=== PATIENT | male | born 1960 | race Caucasian/White ===

== ENCOUNTER → 2022-03-10 09:45 | Outpatient (BNVA) | payer OTHER, MEDICARE, SELFPAY | PROVIDERS: Visit Provider Nurse Practitioner Family | DX: G47.33 Obstructive sleep apnea (adult) (pediatric) (principal) ==

== ENCOUNTER 2023-08-25 09:53 | Outpatient (AMB) | payer OTHER, MEDICARE, SELFPAY ==
--- NOTE | 2023-08-25 09:59 | HO.NEPHOV ---
HPI HPI Comments History of Present Illness Details I had the delight of seeing Mr. Ceballos in consultation for his recent acute kidney injury. He has history of longstanding hypertension and proteinuria. He had a high BMI but never had diabetes. He has never undergone renal biopsy. Recently he was admitted with cellulitis of his left lower extremity. He underwent initial treatment with intravenous vancomycin and Rocephin which was subsequently changed to vancomycin and cefazolin. He underwent CT scan of the left lower extremity which did not show any gas but just cellulitis. He was not told that he has had high vancomycin levels. He had been on multiple antihypertensive medications throughout his hospital stay including angiotensin receptor trino. He was discharged home on linezolid which he has finished. His follow-up serum creatinine was found to be 2.48. He does not have any epistaxis, diffuse skin rashes, photosensitivity, headache, dizziness, chest pain, shortness of breath, nausea, vomiting or diarrhea. He denies taking nonsteroidal anti-inflammatory medications. He has been on fenofibrate. He is concerned about his rising serum creatinine. He has no urinary symptoms. He was recommended by his in the office today. [facility] Medical History (Updated 08/29/23 @ 12:10 by Vignesh Henao MD) Memory loss High cholesterol Hypertension Arthritis Occipital stroke Surgical History History of right hip replacement H/O foot surgery Family History Mother Diabetes HTN (hypertension) Heart disease Father Alzheimer disease Family/Other HTN (hypertension) Social History Alcohol intake: never Patient Tobacco Use Status: Never used Tobacco Vital Signs 08/25/23 10:00 Height 5 ft 8 in Weight 268 lb 2 oz BMI 40.8 BP 142/84 H Blood Pressure Location Lt brachial Position Sitting Pulse 76 Pulse Source Pulse Oximeter Physical Exam Vital Signs: Last Vital Signs Pulse 76 08/25/23 10:00 BP 142/84 H 08/25/23 10:00 BMI result Body Mass Index 40.8 Const General: comfortable and no acute distress Orientation/consciousness: patient oriented x3 HEENT Head: Yes normocephalic Mouth: Normal oral and palatal mucosa present Eyes EOM: EOMs intact bilaterally Neck Neck: Yes supple and Yes no JVD Resp Auscultation: clear to auscultation bilaterally Cardio Jugular venous distension: no JVD Rate: regular rate GI Palpation (GI): Soft to palpation Auscultation: normal bowel sounds General: Yes no CVA tenderness Back/Spine/Pelvis Back: no CVA tenderness Neuro General: patient oriented x3 and moves all extremities Extrem Other: Some erythema in the left LE with skin exfoliation over the region of his cellulitis General: Yes no pedal edema Assessment & Plan Assessment & Plan (1) CKD (chronic kidney disease) stage 3, GFR 30-59 ml/min: Code(s): N18.30 - Chronic kidney disease, stage 3 unspecified Qualifiers: Chronic kidney disease stage 3 subtype: stage 3a (GFR 45-59) Qualified Code(s): N18.31 - Chronic kidney disease, stage 3a (2) MAYE (acute kidney injury): Code(s): N17.9 - Acute kidney failure, unspecified (3) Hypertension: Code(s): I10 - Essential (primary) hypertension Qualifiers: Hypertension type: primary hypertension Qualified Code(s): I10 - Essential (primary) hypertension Plan José Miguel has stage III CKD at baseline with the proteinuria. He had been hypertensive and had been on multiple antihypertensive medications. Renal artery stenosis has not been ruled out as per the patient. He never had a renal biopsy. He recently was admitted in the hospital with cellulitis and needed intravenous antibiotics including Rocephin, cefazolin and vancomycin. Later he was discharged home on linezolid. Serum creatinine has gone up. Differential diagnosis for his MAYE includes tubular injury, nicole infectious glomerulonephritis, AIN or septic ATN. He denied any hemodynamic issues while being in the hospital. He continuously took the angiotensin receptor trino and thiazide diuretic which might have caused tubular issue while he had been having cellulitis. I discontinued his angiotensin receptor trino and hydrochlorothiazide. His urine output is good. I have ordered complement, urine studies and repeat blood work. We may have to hold his fenofibrate if his serum creatinine is not settling down. I asked him to increase the dose of nifedipine his blood pressure goes up given I discontinued his ARB and HCTZ. Once this MAYE has resolved I plan to order Doppler of his renal arteries and quantify his proteinuria. Differential diagnosis of his proteinuria includes secondary FSGS or longstanding hypertension. He is going to be following up with me in a few weeks. He was asked to remain well hydrated and avoid nonsteroidal anti-inflammatory medications. All his and his 's questions were answered. Follow-up appointment given. Time spent during encounter, retrieval of data and documentation 73 minutes. Orders: Orders UA and rflx microscopic 08/25/23 I10 - Essential (primary) hypertension, N17.9 - Acute kidney failure, unspecified, N18.30 - Chronic kidney disease, stage 3 unspecified Urine Eosinophil 08/25/23 I10 - Essential (primary) hypertension, N17.9 - Acute kidney failure, unspecified, N18.30 - Chronic kidney disease, stage 3 unspecified Protein Creatinine Ratio, Ur 08/25/23 I10 - Essential (primary) hypertension, N17.9 - Acute kidney failure, unspecified, N18.30 - Chronic kidney disease, stage 3 unspecified Complement C3 08/25/23 I10 - Essential (primary) hypertension, N17.9 - Acute kidney failure, unspecified, N18.30 - Chronic kidney disease, stage 3 unspecified Complement C4 08/25/23 I10 - Essential (primary) hypertension, N17.9 - Acute kidney failure, unspecified, N18.30 - Chronic kidney disease, stage 3 unspecified Electrolytes 08/25/23 I10 - Essential (primary) hypertension, N17.9 - Acute kidney failure, unspecified, N18.30 - Chronic kidney disease, stage 3 unspecified Blood Urea Nitrogen 08/25/23 I10 - Essential (primary) hypertension, N17.9 - Acute kidney failure, unspecified, N18.30 - Chronic kidney disease, stage 3 unspecified Creatinine 08/25/23 I10 - Essential (primary) hypertension, N17.9 - Acute kidney failure, unspecified, N18.30 - Chronic kidney disease, stage 3 unspecified Calcium 08/25/23 I10 - Essential (primary) hypertension, N17.9 - Acute kidney failure, unspecified, N18.30 - Chronic kidney disease, stage 3 unspecified Immunofixation Pnl, Serum 08/25/23 I10 - Essential (primary) hypertension, N17.9 - Acute kidney failure, unspecified, N18.30 - Chronic kidney disease, stage 3 unspecified Coding Level of Care Code New Pt Level 4 (84688) Diagnoses Stage 3a chronic kidney disease N18.31 Chronic kidney disease stage 3 subtype: stage 3a (GFR 45-59) MAYE (acute kidney injury) N17.9 Primary hypertension I10 Hypertension type: primary hypertension
[2023-08-25 10:00] VITALS: BP 142/84; PULSE 76; BMI 40.8
== END 2023-08-25 10:59 | disposition home or self-care (01) ==
PROVIDERS: PCP Internal Medicine; Referring Provider Internal Medicine; Visit Provider Internal Medicine Nephrology
DX: N17.9 Acute kidney failure, unspecified (principal); I12.9 Hypertensive chronic kidney disease with stage 1 through stage 4 chronic kidney disease, or unspecified chronic kidney disease; N18.31 Chronic kidney disease, stage 3a; R80.8 Other proteinuria
CPT/HCPCS: 99205

== ENCOUNTER → 2023-08-25 09:53 | Outpatient (BNVA) | payer OTHER, MEDICARE, SELFPAY | PROVIDERS: PCP Internal Medicine; Referring Provider Internal Medicine; Visit Provider Internal Medicine Nephrology ==

== ENCOUNTER 2023-09-05 09:45 | Outpatient (AMB) | payer OTHER, MEDICARE, SELFPAY ==
[2023-09-05 10:31] VITALS: BP 124/82; PULSE 65; BMI 41.2
--- NOTE | 2023-09-05 10:31 | HO.NEPHOV_ITS ---
HPI HPI Comments History of Present Illness Details I had the delight of seeing Mr. Ceballos in follow for his recent acute kidney injury on a backdrop of CKD , hypertension and proteinuria . He had a high BMI but never had diabetes. He has SHARATH on CPAP. He has never undergone renal biopsy. Recently he was admitted with cellulitis of his left lower extremity. He underwent initial treatment with intravenous vancomycin and Rocephin which was subsequently changed to vancomycin and cefazolin. He underwent CT scan of the left lower extremity which did not show any gas but just cellulitis. He was not told that he has had high vancomycin levels. He had been on multiple antihypertensive medications throughout his hospital stay including angiotensin receptor trino. He was discharged home on linezolid which he has finished. His follow-up serum creatinine was found to be 2.48. His diuretics and ARB has been discontinued by me at the last office visit. His serum creatinine has improved to 1.4. He has high IgG levels and has seen Dr Moore. He has some edema bilaterally. He denies any other symptoms. [facility] Medical History (Updated 09/06/23 @ 06:25 by Vignesh Henao MD) Memory loss High cholesterol Hypertension Arthritis Occipital stroke Surgical History History of right hip replacement H/O foot surgery Family History Mother Diabetes HTN (hypertension) Heart disease Father Alzheimer disease Family/Other HTN (hypertension) Alcohol intake: never Patient Tobacco Use Status: Never used Tobacco Vital Signs 09/05/23 10:31 Height 5 ft 8 in Weight 271 lb BMI 41.2 BP 124/82 Blood Pressure Location Lt brachial Position Sitting Pulse 65 Pulse Source Pulse Oximeter Physical Exam Vital Signs: Last Vital Signs Pulse 65 09/05/23 10:31 BP 124/82 09/05/23 10:31 BMI result Body Mass Index 41.2 Const General: comfortable and no acute distress Orientation/consciousness: patient oriented x3 HEENT Head: Yes normocephalic Mouth: Normal oral and palatal mucosa present Eyes EOM: EOMs intact bilaterally Neck Neck: Yes supple Resp Auscultation: clear to auscultation bilaterally Cardio Jugular venous distension: no JVD Rate: regular rate GI Palpation (GI): Soft to palpation Auscultation: normal bowel sounds General: Yes no CVA tenderness Back/Spine/Pelvis Back: no CVA tenderness Skin General skin exam: no rashes or lesions noted Neuro General: patient oriented x3 and moves all extremities Extrem General: Yes pedal edema Assessment & Plan Assessment & Plan (1) CKD (chronic kidney disease) stage 3, GFR 30-59 ml/min: Code(s): N18.30 - Chronic kidney disease, stage 3 unspecified Qualifiers: Chronic kidney disease stage 3 subtype: stage 3a (GFR 45-59) Qualified Code(s): N18.31 - Chronic kidney disease, stage 3a (2) Hypertension: Code(s): I10 - Essential (primary) hypertension Qualifiers: Hypertension type: primary hypertension Qualified Code(s): I10 - Essential (primary) hypertension (3) 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 He had been hypertensive and had been on multiple antihypertensive medications. Renal artery stenosis has not been ruled out as per the patient. He never had a renal biopsy. He recently was admitted in the hospital with cellulitis and needed intravenous antibiotics including Rocephin, cefazolin and vancomycin. Later he was discharged home on linezolid. Serum creatinine had gone up which has settled to 1.4 when his diuretic and ARB had been put on hold. Differential diagnosis for his MAYE at that time included tubular injury, nicole infectious glomerulonephritis, AIN or septic ATN. He denied any hemodynamic issues while being in the hospital. He continuously took the angiotensin receptor trino and thiazide diuretic which likely have caused tubular issue (while he had been having cellulitis), which has been resolved now. His angiotensin receptor trino and hydrochlorothiazide has been on hold since. His urine output is good. He has high IgG levels. He likely will need bone marrow biopsy and ECHO. I plan to order Doppler of his renal arteries and quantify his proteinuria after next visit. Differential diagnosis of his proteinuria includes secondary FSGS or longstanding hypertension vs light chain disease. He is going to be following up with me in a few weeks. He was asked to remain well hydrated and avoid nonsteroidal anti-inflammatory medications. I plan to initiate him back on diuretics and ARB after next visit. He needs lose weight. All his and his 's questions were answered. Follow-up appointment given. Time spent during encounter, retrieval of data and documentation 33 minutes Orders: Orders Protein Creatinine Ratio, Ur 09/05/23 I10 - Essential (primary) hypertension, N18.30 - Chronic kidney disease, stage 3 unspecified Electrolytes 09/05/23 I10 - Essential (primary) hypertension, N18.30 - Chronic kidney disease, stage 3 unspecified Blood Urea Nitrogen 09/05/23 I10 - Essential (primary) hypertension, N18.30 - Chronic kidney disease, stage 3 unspecified Creatinine 09/05/23 I10 - Essential (primary) hypertension, N18.30 - Chronic kidney disease, stage 3 unspecified Calcium 09/05/23 I10 - Essential (primary) hypertension, N18.30 - Chronic kidney disease, stage 3 unspecified Immunofixation, Random Urine 09/05/23 I10 - Essential (primary) hypertension, N18.30 - Chronic kidney disease, stage 3 unspecified Complete Blood Count Auto Diff 09/05/23 I10 - Essential (primary) hypertension, N18.30 - Chronic kidney disease, stage 3 unspecified Coding Level of Care Code Est Pt Level 4 (24756) Diagnoses Stage 3a chronic kidney disease N18.31 Chronic kidney disease stage 3 subtype: stage 3a (GFR 45-59) Primary hypertension I10 Hypertension type: primary hypertension Paraproteinemia D89.2 Other proteinuria R80.8 Proteinuria type: other MAYE (acute kidney injury) N17.9
== END 2023-09-05 11:11 | disposition home or self-care (01) ==
PROVIDERS: PCP Internal Medicine; Visit Provider Internal Medicine Nephrology
DX: I12.9 Hypertensive chronic kidney disease with stage 1 through stage 4 chronic kidney disease, or unspecified chronic kidney disease (principal); N18.31 Chronic kidney disease, stage 3a; N17.9 Acute kidney failure, unspecified; D89.2 Hypergammaglobulinemia, unspecified; R80.8 Other proteinuria
CPT/HCPCS: 99214

== ENCOUNTER → 2023-09-05 09:45 | Outpatient (BNVA) | payer OTHER, MEDICARE, SELFPAY | PROVIDERS: PCP Internal Medicine; Visit Provider Internal Medicine Nephrology ==

== ENCOUNTER 2023-10-26 09:50 | Outpatient (AMB) | payer OTHER, MEDICARE, SELFPAY ==
[2023-10-26 10:04] VITALS: BP 158/100; PULSE 66; BMI 42.4
--- NOTE | 2023-10-26 10:04 | HO.NEPHOV ---
HPI HPI Comments History of Present Illness Details I had the delight of seeing Mr. Ceballos in follow for his recent acute kidney injury on a backdrop of CKD , hypertension and proteinuria . He had a high BMI but never had diabetes. He has SHARATH on CPAP. He has never undergone renal biopsy. Recently he was admitted with cellulitis of his left lower extremity. He underwent initial treatment with intravenous vancomycin and Rocephin which was subsequently changed to vancomycin and cefazolin. He underwent CT scan of the left lower extremity which did not show any gas but just cellulitis. He was not told that he has had high vancomycin levels. He had been on multiple antihypertensive medications throughout his hospital stay including angiotensin receptor trino. He was discharged home on linezolid which he has finished. His follow-up serum creatinine was found to be 2.48. His diuretics and ARB has been discontinued by me & his serum creatinine has improved to 1.4. He has high IgG levels and has seen Dr Moore. He has some edema bilaterally. He denies any other symptoms [facility] Medical History (Updated 09/06/23 @ 06:25 by Vignesh Henao MD) Memory loss High cholesterol Hypertension Arthritis Occipital stroke Surgical History History of right hip replacement H/O foot surgery Family History Mother Diabetes HTN (hypertension) Heart disease Father Alzheimer disease Family/Other HTN (hypertension) Social History Alcohol intake: never Patient Tobacco Use Status: Never used Tobacco Vital Signs 10/26/23 10:04 Height 5 ft 8 in Weight 279 lb 2 oz BMI 42.4 BP 158/100 H Blood Pressure Location Lt brachial Position Sitting Pulse 66 Pulse Source Pulse Oximeter Physical Exam Vital Signs: Last Vital Signs Pulse 66 10/26/23 10:04 BP 158/100 H 10/26/23 10:04 BMI result Body Mass Index 42.4 Const General: comfortable and no acute distress Orientation/consciousness: patient oriented x3 HEENT Head: Yes normocephalic Mouth: Normal oral and palatal mucosa present Eyes EOM: EOMs intact bilaterally Neck Neck: Yes supple Resp Auscultation: clear to auscultation bilaterally Cardio Jugular venous distension: no JVD Rate: regular rate GI Palpation (GI): Soft to palpation Auscultation: normal bowel sounds General: Yes no CVA tenderness Back/Spine/Pelvis Back: no CVA tenderness Skin General skin exam: no rashes or lesions noted Neuro General: patient oriented x3 and moves all extremities Extrem General: Yes no pedal edema Assessment & Plan Assessment & Plan (1) CKD (chronic kidney disease) stage 3, GFR 30-59 ml/min: Code(s): N18.30 - Chronic kidney disease, stage 3 unspecified Qualifiers: Chronic kidney disease stage 3 subtype: stage 3a (GFR 45-59) Qualified Code(s): N18.31 - Chronic kidney disease, stage 3a (2) Hypertension: Code(s): I10 - Essential (primary) hypertension Qualifiers: Hypertension type: primary hypertension Qualified Code(s): I10 - Essential (primary) hypertension (3) 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 He had been hypertensive and had been on multiple antihypertensive medications. Renal artery stenosis has not been ruled out as per the patient. He never had a renal biopsy. He recently was admitted in the hospital with cellulitis and needed intravenous antibiotics including Rocephin, cefazolin and vancomycin. Later he was discharged home on linezolid. Serum creatinine had gone up which has settled to 1.4 when his diuretic and ARB had been put on hold. Differential diagnosis for his MAYE at that time included tubular injury, nicole infectious glomerulonephritis, AIN or septic ATN. He denied any hemodynamic issues while being in the hospital. He continuously took the angiotensin receptor trino and thiazide diuretic which likely have caused tubular issue (while he had been having cellulitis), which has been resolved now. His angiotensin receptor trino and hydrochlorothiazide has been on hold since. His urine output is good. He has high IgG levels. ( has seen Dr Moore). He likely will need bone marrow biopsy and ECHO. I ordered Doppler of his renal arteries but will quantify his proteinuria after next visit. Differential diagnosis of his proteinuria includes secondary FSGS or longstanding hypertension vs light chain disease. I reduced his Nifedipine to 60 mg daily and started him on Chlorthalidone 25 mg every other day in addition to valsartan 40 mg daily. He is going to be following up with me in a few weeks. He was asked to remain well hydrated and avoid nonsteroidal anti-inflammatory medications. He needs lose weight. All his and his 's questions were answered. Follow-up appointment given Orders: Orders US renal BI Today D89.2 - Hypergammaglobulinemia, unspecified, I10 - Essential (primary) hypertension, N18.30 - Chronic kidney disease, stage 3 unspecified, R80.9 - Proteinuria, unspecified Electrolytes Today D89.2 - Hypergammaglobulinemia, unspecified, I10 - Essential (primary) hypertension, N18.30 - Chronic kidney disease, stage 3 unspecified, R80.9 - Proteinuria, unspecified Blood Urea Nitrogen Today D89.2 - Hypergammaglobulinemia, unspecified, I10 - Essential (primary) hypertension, N18.30 - Chronic kidney disease, stage 3 unspecified, R80.9 - Proteinuria, unspecified US renal doppler Today D89.2 - Hypergammaglobulinemia, unspecified, I10 - Essential (primary) hypertension, N18.30 - Chronic kidney disease, stage 3 unspecified, R80.9 - Proteinuria, unspecified Creatinine Today D89.2 - Hypergammaglobulinemia, unspecified, I10 - Essential (primary) hypertension, N18.30 - Chronic kidney disease, stage 3 unspecified, R80.9 - Proteinuria, unspecified Medications: New chlorthalidone 25 mg PO Q OTHER DAY 30 tabs 5RF valsartan 40 mg PO DAILY 30 days 30 tabs 3RF Coding Level of Care Code Est Pt Level 4 (27574) Diagnoses Stage 3a chronic kidney disease N18.31 Chronic kidney disease stage 3 subtype: stage 3a (GFR 45-59) Primary hypertension I10 Hypertension type: primary hypertension Paraproteinemia D89.2 Other proteinuria R80.8 Proteinuria type: other Results Reviewed Nephrology Results: No Data to Display
== END 2023-10-26 10:45 | disposition home or self-care (01) ==
PROVIDERS: PCP Internal Medicine; Visit Provider Internal Medicine Nephrology
DX: N18.31 Chronic kidney disease, stage 3a (principal); I10 Essential (primary) hypertension; D89.2 Hypergammaglobulinemia, unspecified; R80.8 Other proteinuria
CPT/HCPCS: 99214

== ENCOUNTER → 2023-10-26 09:50 | Outpatient (BNVA) | payer OTHER, MEDICARE, SELFPAY | PROVIDERS: PCP Internal Medicine; Visit Provider Internal Medicine Nephrology ==

== ENCOUNTER 2023-12-14 09:38 | Outpatient (AMB) | payer OTHER, MEDICARE, SELFPAY ==
--- NOTE | 2023-12-14 09:44 | HO.NEPHOV ---
HPI HPI Comments History of Present Illness Details I had the delight of seeing Mr. Ceballos in follow for his CKD , hypertension and proteinuria . He had a high BMI but never had diabetes. He has SHARATH on CPAP. He has never undergone renal biopsy. Recently he was admitted with cellulitis of his left lower extremity. He underwent initial treatment with intravenous vancomycin and Rocephin which was subsequently changed to vancomycin and cefazolin. He underwent CT scan of the left lower extremity which did not show any gas but just cellulitis. He was not told that he has had high vancomycin levels. He had been on multiple antihypertensive medications throughout his hospital stay including angiotensin receptor trino. He was discharged home on linezolid which he has finished. His follow-up serum creatinine was found to be 2.48. His diuretics and ARB has been discontinued by me & his serum creatinine has improved to 1.4. He has high IgG levels and has seen Dr Moore. He has been on ARB and Nifedipine for BP. His last serum creatinine was 1.68. He has some edema bilaterally. He denies any other symptoms [facility] Medical History (Updated 09/06/23 @ 06:25 by Vignesh eHnao MD) Memory loss High cholesterol Hypertension Arthritis Occipital stroke Surgical History History of right hip replacement H/O foot surgery Family History Mother Diabetes HTN (hypertension) Heart disease Father Alzheimer disease Family/Other HTN (hypertension) Social History Alcohol intake: never Patient Tobacco Use Status: Never used Tobacco Vital Signs 12/14/23 09:52 Height 5 ft 8 in Weight 282 lb 4 oz BMI 42.9 BP 166/100 H Blood Pressure Location Lt brachial Position Sitting Pulse 72 Pulse Source Pulse Oximeter Pulse Oximetry (%) 96 Oxygen Delivery Method Room Air Physical Exam Const General: comfortable and no acute distress Orientation/consciousness: patient oriented x3 HEENT Head: Yes normocephalic Mouth: Normal oral and palatal mucosa present Eyes EOM: EOMs intact bilaterally Neck Neck: Yes supple Resp Auscultation: clear to auscultation bilaterally Cardio Jugular venous distension: no JVD Rate: regular rate GI Palpation (GI): Soft to palpation Auscultation: normal bowel sounds General: Yes no CVA tenderness Back/Spine/Pelvis Back: no CVA tenderness Skin General skin exam: no rashes or lesions noted Neuro General: patient oriented x3 and moves all extremities Assessment & Plan Assessment & Plan (1) CKD (chronic kidney disease) stage 3, GFR 30-59 ml/min: Code(s): N18.30 - Chronic kidney disease, stage 3 unspecified Qualifiers: Chronic kidney disease stage 3 subtype: stage 3a (GFR 45-59) Qualified Code(s): N18.31 - Chronic kidney disease, stage 3a (2) Hypertension: Code(s): I10 - Essential (primary) hypertension Qualifiers: Hypertension type: primary hypertension Qualified Code(s): I10 - Essential (primary) hypertension (3) 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 He had been hypertensive and had been on multiple antihypertensive medications. Renal artery stenosis has been ruled out as per the patient. He never had a renal biopsy. Serum creatinine has settled to 1.68. His urine output is good. He has high IgG levels. ( has seen Dr Moore). He is seeing a hvac tech in a few weeks and likely will get an ECHO done. Doppler of his renal arteries were done has no DELANEY. I will quantify his proteinuria with time. Differential diagnosis of his proteinuria includes secondary FSGS or longstanding hypertension vs light chain disease. He can continue Nifedipine 60 mg daily , Chlorthalidone 25 mg every other day in addition to valsartan 40 mg daily & metoprolol. He was asked to remain well hydrated and avoid nonsteroidal anti-inflammatory medications. He needs lose weight. All his and his 's questions were answered. Follow-up appointment given Orders: Orders Blood Urea Nitrogen Today D89.2 - Hypergammaglobulinemia, unspecified, I10 - Essential (primary) hypertension, N18.30 - Chronic kidney disease, stage 3 unspecified, R80.9 - Proteinuria, unspecified Protein Creatinine Ratio, Ur Today D89.2 - Hypergammaglobulinemia, unspecified, I10 - Essential (primary) hypertension, N18.30 - Chronic kidney disease, stage 3 unspecified, R80.9 - Proteinuria, unspecified Creatinine Today D89.2 - Hypergammaglobulinemia, unspecified, I10 - Essential (primary) hypertension, N18.30 - Chronic kidney disease, stage 3 unspecified, R80.9 - Proteinuria, unspecified Electrolytes Today D89.2 - Hypergammaglobulinemia, unspecified, I10 - Essential (primary) hypertension, N18.30 - Chronic kidney disease, stage 3 unspecified, R80.9 - Proteinuria, unspecified Coding Level of Care Code Est Pt Level 4 (76095) Diagnoses Stage 3a chronic kidney disease N18.31 Chronic kidney disease stage 3 subtype: stage 3a (GFR 45-59) Primary hypertension I10 Hypertension type: primary hypertension Paraproteinemia D89.2 Other proteinuria R80.8 Proteinuria type: other Results Reviewed Nephrology Results: No Data to Display
[2023-12-14 09:52] VITALS: BP 166/100; PULSE 72; O2SAT 96; BMI 42.9
== END 2023-12-14 10:41 | disposition home or self-care (01) ==
PROVIDERS: PCP Internal Medicine; Visit Provider Internal Medicine Nephrology
DX: N18.31 Chronic kidney disease, stage 3a (principal); I10 Essential (primary) hypertension; D89.2 Hypergammaglobulinemia, unspecified; R80.8 Other proteinuria
CPT/HCPCS: 99214

== ENCOUNTER → 2023-12-14 09:38 | Outpatient (BNVA) | payer OTHER, MEDICARE, SELFPAY | PROVIDERS: PCP Internal Medicine; Visit Provider Internal Medicine Nephrology ==

== ENCOUNTER 2024-04-11 10:46 | Outpatient (AMB) | payer OTHER, MEDICARE, SELFPAY ==
--- NOTE | 2024-04-11 10:55 | HO.NEPHOV_ITS ---
Vital Signs 04/11/24 10:57 Height 5 ft 8 in Weight 289 lb 6 oz BMI 44.0 BP 150/88 H Blood Pressure Location Lt brachial Position Sitting Pulse 65 Pulse Source Pulse Oximeter Pulse Oximetry (%) 94 Oxygen Delivery Method Room Air Intake Visit Reasons: 4 mon follow up/ LVM Retail Sales Associate Required: No Accompanied by: Self / Same As Patient Allergies indomethacin Allergy (Severe, Verified 04/11/24 10:59) Anaphylaxis HPI Comments Details: I had the delight of seeing Mr. Ceballos in follow for his CKD , hypertension and proteinuria . He had MAYE when he had cellulitis which needed a hospital admission. His follow-up serum creatinine had settled to baseline . He has high IgG levels and has seen Dr Moore. He has been on ARB and Nifedipine for BP. His last serum creatinine was 1.59. He denies any other symptoms [facility] Medical History (Updated 09/06/23 @ 06:25 by Vignesh Henao MD) Memory loss High cholesterol Hypertension Arthritis Occipital stroke Surgical History History of right hip replacement H/O foot surgery Family History Mother Diabetes HTN (hypertension) Heart disease Father Alzheimer disease Family/Other HTN (hypertension) Social History Alcohol intake: never Patient Tobacco Use Status: Never used Tobacco Results Reviewed Nephrology Results: No Data to Display Assessment & Plan Assessment & Plan (1) Proteinuria: Code(s): R80.9 - Proteinuria, unspecified Category: Medical Qualifiers: Proteinuria type: other Qualified Code(s): R80.8 - Other proteinuria (2) Paraproteinemia: Code(s): 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 He had been hypertensive and had been on multiple antihypertensive medications. Renal artery stenosis has been ruled out as per the patient. He never had a renal biopsy. Serum creatinine has settled to 1.5. His urine output is good. He has high IgG levels. ( has seen Dr Moore). Doppler of his renal arteries were done has no DELANEY. I will quantify his proteinuria again with time. Differential diagnosis of his proteinuria includes secondary FSGS or longstanding hypertension vs light chain disease. He can continue Nifedipine 60 mg daily , Chlorthalidone 25 mg every other day in addition to metoprolol. I increased his valsartan to 80 mg which I plan to increase to 320 mg if he tolerates. He was asked to remain well hydrated and avoid nonsteroidal anti-inflammatory medications. He needs lose weight. All his questions were answered. Follow-up appointment given Orders: Orders Protein Creatinine Ratio, Ur Today D89.2 - Hypergammaglobulinemia, unspecified, I10 - Essential (primary) hypertension, N18.31 - Chronic kidney disease, stage 3a, R80.8 - Other proteinuria Creatinine Today D89.2 - Hypergammaglobulinemia, unspecified, I10 - Essential (primary) hypertension, N18.31 - Chronic kidney disease, stage 3a, R80.8 - Other proteinuria Electrolytes Today D89.2 - Hypergammaglobulinemia, unspecified, I10 - Essential (primary) hypertension, N18.31 - Chronic kidney disease, stage 3a, R80.8 - Other proteinuria Blood Urea Nitrogen Today D89.2 - Hypergammaglobulinemia, unspecified, I10 - Essential (primary) hypertension, N18.31 - Chronic kidney disease, stage 3a, R80.8 - Other proteinuria Complete Blood Count Auto Diff Today D89.2 - Hypergammaglobulinemia, unspecified, I10 - Essential (primary) hypertension, N18.31 - Chronic kidney disease, stage 3a, R80.8 - Other proteinuria Prothrombin Time INR Today D89.2 - Hypergammaglobulinemia, unspecified, I10 - Essential (primary) hypertension, N18.31 - Chronic kidney disease, stage 3a, R80.8 - Other proteinuria Medications: Changed From valsartan 40 mg PO DAILY 90 tabs 1RF To valsartan 40 mg (1/2 x 80 mg) PO DAILY 30 tabs 4RF Coding Level of Care Code Est Pt Level 4 (24797) Diagnoses Other proteinuria R80.8 Proteinuria type: other Paraproteinemia D89.2 Primary hypertension I10 Hypertension type: primary hypertension Stage 3a chronic kidney disease N18.31 Chronic kidney disease stage 3 subtype: stage 3a (GFR 45-59)
[2024-04-11 10:57] VITALS: BP 150/88; PULSE 65; O2SAT 94; BMI 44.0
== END 2024-04-11 11:19 | disposition home or self-care (01) ==
PROVIDERS: PCP Internal Medicine; Visit Provider Internal Medicine Nephrology
DX: R80.8 Other proteinuria (principal); D89.2 Hypergammaglobulinemia, unspecified; I10 Essential (primary) hypertension; N18.31 Chronic kidney disease, stage 3a
CPT/HCPCS: 99214

== ENCOUNTER → 2024-04-11 10:46 | Outpatient (BNVA) | payer OTHER, MEDICARE, SELFPAY | PROVIDERS: PCP Internal Medicine; Visit Provider Internal Medicine Nephrology ==

== ENCOUNTER 2024-07-11 15:12 | Outpatient (REF) | payer OTHER, MEDICARE, SELFPAY ==
[2024-07-11 18:53] LABS: MANUAL DIFF FLAG NO
[2024-07-11 18:57] LABS: Basophils Percent Auto 0.3 % (0-2); Eosinophils Absolute Auto 0.2 X10*3/uL (0.0-0.4); Eosinophils Percent Auto 2.2 % (0-4); Hematocrit 42.7 % (42.0-52.0); Hemoglobin 14.5 g/dl (14.0-18.0); Imm Gran Abs Auto 0.03 X10*3/uL (0.00-0.03); Imm Gran Pct Auto 0.4 % (0.0-0.4); Lymphocytes Absolute Auto 2.1 X10*3/uL (1.2-4.9); Lymphocytes Percent Auto 26.6 % (20-40); Mean Corpuscular Hemoglobin 30.6 pg (27.0-33.0); Mean Corpuscular Volume 90.1 fL (80.0-98.0); Mean Platelet Volume 10.1 fL (9.4-12.4); Monocytes Absolute Auto 0.9 X10*3/uL (0.1-1.2); Monocytes Percent Auto 11.8 % (2-11); Neutrophils Absolute Auto 4.5 x10*3/uL (2.0-8.3); Neutrophils Percent Auto 58.7 % (45-73); Platelet Count 204 X10*3/uL (160-400); Red Blood Count 4.74 X10*6/uL (4.60-5.80); Red Cell Distribution Width 14.5 % (11.0-16.0); White Blood Count 7.7 X10*3/uL (4.8-10.8)
[2024-07-11 19:01] LABS: INTERNATIONAL NORM RATIO 0.9 (0.9-1.1); Prothrombin Time 10.6 SEC (10.9-12.4)
[2024-07-11 19:04] LABS: Anion Gap 13 (12-20); Blood Urea Nitrogen 35 mg/dL (9-16); Carbon Dioxide 31 mmol/L (22-29); Chloride 102 mmol/L (96-108); Estimated Glomerular Filt Rate 34; Potassium 3.9 mmol/L (3.3-5.1); Sodium 142 mmol/L (135-145)
[2024-07-11 19:55] LABS: Creatinine Urine 121.55 mg/dL; Protein/Creatinine Ratio, Ur 2.95 (<0.2); Total Protein Urine Random 359 mg/dL (<12)
== END 2024-07-11 15:13 | disposition home or self-care (01) ==
LOC: HO.HKASLDS 15:12
PROVIDERS: Visit Provider Internal Medicine Nephrology
DX: R80.9 Proteinuria, unspecified (principal); D89.2 Hypergammaglobulinemia, unspecified; I10 Essential (primary) hypertension; N18.30 Chronic kidney disease, stage 3 unspecified; R80.8 Other proteinuria; N18.31 Chronic kidney disease, stage 3a
CPT/HCPCS: 36415; 80051; 82565; 82570; 84156; 84520; 85025; 85610

== ENCOUNTER 2024-07-18 09:45 | Outpatient (AMB) | payer OTHER, MEDICARE, SELFPAY ==
--- NOTE | 2024-07-18 10:01 | HO.NEPHOV_ITS ---
Vital Signs 07/18/24 10:03 Height 5 ft 8 in Weight 295 lb 2 oz BMI 44.9 BP 120/80 Blood Pressure Location Lt brachial Position Sitting Pulse 63 Pulse Source Pulse Oximeter Pulse Oximetry (%) 93 Oxygen Delivery Method Room Air Intake Visit Reasons: 3 mon follow up/ Conf Astrobiologist Required: No Accompanied by: Spouse Allergies indomethacin Allergy (Severe, Verified 07/18/24 10:02) Anaphylaxis HPI Comments Details: I had the delight of seeing Mr. Ceballos in follow for his CKD , hypertension and proteinuria . He had MAYE when he had cellulitis which needed a hospital admission. His follow-up serum creatinine had settled to baseline . He has high IgG levels and has seen Dr Moore. He has been on ARB and Nifedipine for BP. His last serum creatinine was 1.9. He denies any other symptoms [facility] Medical History (Updated 09/06/23 @ 06:25 by Vignesh Henao MD) Memory loss High cholesterol Hypertension Arthritis Occipital stroke Surgical History History of right hip replacement H/O foot surgery Family History Mother Diabetes HTN (hypertension) Heart disease Father Alzheimer disease Family/Other HTN (hypertension) Social History Alcohol intake: never Patient Tobacco Use Status: Never used Tobacco Review of Systems Const All systems reviewed & are unremarkable except as noted in HPI and below Physical Exam Vital Signs: Last Vital Signs Pulse 63 07/18/24 10:03 BP 150/80 H 07/18/24 10:03 Pulse Ox 93 07/18/24 10:03 Oxygen Delivery Method Room Air 07/18/24 10:03 BMI result Body Mass Index 44.9 Const General: comfortable and no acute distress Orientation/consciousness: patient oriented x3 HEENT Head: Yes normocephalic Mouth: Normal oral and palatal mucosa present Eyes EOM: EOMs intact bilaterally Neck Neck: Yes supple Resp Auscultation: clear to auscultation bilaterally Cardio Jugular venous distension: no JVD Rate: regular rate GI Palpation (GI): Soft to palpation Auscultation: normal bowel sounds General: Yes no CVA tenderness Back/Spine/Pelvis Back: no CVA tenderness Skin General skin exam: no rashes or lesions noted Neuro General: patient oriented x3 and moves all extremities Extrem General: Yes no pedal edema Results Reviewed Nephrology Results: Hgb 14.5 g/dl (14.0-18.0) 07/11/24 WBC 7.7 X10*3/uL (4.8-10.8) 07/11/24 Plt Count 204 X10*3/uL (160-400) 07/11/24 Sodium 142 mmol/L (135-145) 07/11/24 Potassium 3.9 mmol/L (3.3-5.1) 07/11/24 Chloride 102 mmol/L (96-108) 07/11/24 Carbon Dioxide 31 mmol/L (22-29) H 07/11/24 BUN 35 mg/dL (9-16) H 07/11/24 Creatinine 1.97 mg/dL (0.5-1.4) H 07/11/24 Urine Creatinine 121.55 mg/dL 07/11/24 Protein/Creatinin Ratio 2.95 (<0.2) H 07/11/24 Assessment & Plan Assessment & Plan (1) CKD (chronic kidney disease) stage 3, GFR 30-59 ml/min: Code(s): N18.30 - Chronic kidney disease, stage 3 unspecified Category: Medical Qualifiers: Chronic kidney disease stage 3 subtype: stage 3a (GFR 45-59) Qualified Code(s): N18.31 - Chronic kidney disease, stage 3a (2) Hypertension: Code(s): I10 - Essential (primary) hypertension Category: Medical Qualifiers: Hypertension type: primary hypertension Qualified Code(s): I10 - Essential (primary) hypertension (3) Paraproteinemia: Code(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 He had been hypertensive and had been on multiple antihypertensive medications. Renal artery stenosis has been ruled out as per the patient. He never had a renal biopsy. His urine output is good. He has high IgG levels. ( has seen Dr Moore). Doppler of his renal arteries were done has no DELANEY. I will quantify his proteinuria again with time. Differential diagnosis of his proteinuria includes secondary FSGS or longstanding hypertension vs light chain disease. He can continue Nifedipine 60 mg daily , Chlorthalidone 25 mg every other day in add ition to metoprolol as well as valsartan 80 mg. He was asked to remain well hydrated and avoid nonsteroidal anti-inflammatory medications. He needs lose weight. All his questions were answered. Follow-up appointment given Orders: Orders Blood Urea Nitrogen 3 Months D89.2 - Hypergammaglobulinemia, unspecified, I10 - Essential (primary) hypertension, N18.31 - Chronic kidney disease, stage 3a Electrolytes 3 Months D89.2 - Hypergammaglobulinemia, unspecified, I10 - Essential (primary) hypertension, N18.31 - Chronic kidney disease, stage 3a Creatinine 3 Months D89.2 - Hypergammaglobulinemia, unspecified, I10 - Essential (primary) hypertension, N18.31 - Chronic kidney disease, stage 3a Calcium 3 Months D89.2 - Hypergammaglobulinemia, unspecified, I10 - Essential (primary) hypertension, N18.31 - Chronic kidney disease, stage 3a Coding Level of Care Code Est Pt Level 4 (76057) Diagnoses Stage 3a chronic kidney disease N18.31 Chronic kidney disease stage 3 subtype: stage 3a (GFR 45-59) Primary hypertension I10 Hypertension type: primary hypertension Paraproteinemia D89.2
[2024-07-18 10:03] VITALS: BP 120/80; PULSE 63; O2SAT 93; BMI 44.9
== END 2024-07-18 10:37 | disposition home or self-care (01) ==
PROVIDERS: PCP Internal Medicine; Visit Provider Internal Medicine Nephrology
DX: N18.31 Chronic kidney disease, stage 3a (principal); I10 Essential (primary) hypertension; D89.2 Hypergammaglobulinemia, unspecified
CPT/HCPCS: 99214

== ENCOUNTER → 2024-07-18 09:45 | Outpatient (BNVA) | payer OTHER, MEDICARE, SELFPAY | PROVIDERS: PCP Internal Medicine; Visit Provider Internal Medicine Nephrology ==

== ENCOUNTER 2024-10-24 09:50 | Outpatient (AMB) | payer OTHER, MEDICARE, SELFPAY ==
--- NOTE | 2024-10-24 09:50 | HO.NEPHOV ---
Vital Signs 10/24/24 09:53 Height 5 ft 8 in Weight 298 lb 8 oz BMI 45.4 BP 134/80 Blood Pressure Location Lt brachial Position Sitting Pulse 65 Pulse Source Pulse Oximeter Pulse Oximetry (%) 96 Oxygen Delivery Method Room Air Intake Visit Reasons: 3 mon follow up Water Service Dispatcher Required: No Accompanied by: Spouse Allergies indomethacin Allergy (Severe, Verified 10/24/24 09:52) Anaphylaxis HPI Comments Details: Mr. Ceballos was seen in follow up for his CKD , hypertension and proteinuria . He is going to have nuclear stress test tomorrow. He has high IgG levels and has seen Dr Moore. He has been on ARB and Nifedipine for BP. His last serum creatinine has been stable. He denies any other symptoms [facility] Medical History (Updated 09/06/23 @ 06:25 by Vignesh Henao MD) Memory loss High cholesterol Hypertension Arthritis Occipital stroke Surgical History History of right hip replacement H/O foot surgery Family History Mother Diabetes HTN (hypertension) Heart disease Father Alzheimer disease Family/Other HTN (hypertension) Social History Alcohol intake: never Patient Tobacco Use Status: Never used Tobacco Review of Systems Const All systems reviewed & are unremarkable except as noted in HPI and below Physical Exam Const General: comfortable and no acute distress Orientation/consciousness: patient oriented x3 HEENT Head: Yes normocephalic Mouth: Normal oral and palatal mucosa present Eyes EOM: EOMs intact bilaterally Neck Neck: Yes supple Resp Auscultation: clear to auscultation bilaterally Cardio Jugular venous distension: no JVD Rate: regular rate GI Palpation (GI): Soft to palpation Auscultation: normal bowel sounds General: Yes no CVA tenderness Back/Spine/Pelvis Back: no CVA tenderness Skin General skin exam: no rashes or lesions noted Neuro General: patient oriented x3 and moves all extremities Results Reviewed Nephrology Results: Hgb 14.5 g/dl (14.0-18.0) 07/11/24 WBC 7.7 X10*3/uL (4.8-10.8) 07/11/24 Plt Count 204 X10*3/uL (160-400) 07/11/24 Sodium 142 mmol/L (135-145) 07/11/24 Potassium 3.9 mmol/L (3.3-5.1) 07/11/24 Chloride 102 mmol/L (96-108) 07/11/24 Carbon Dioxide 31 mmol/L (22-29) H 07/11/24 BUN 35 mg/dL (9-16) H 07/11/24 Creatinine 1.97 mg/dL (0.5-1.4) H 07/11/24 Urine Creatinine 121.55 mg/dL 07/11/24 Protein/Creatinin Ratio 2.95 (<0.2) H 07/11/24 Assessment & Plan Assessment & Plan (1) Proteinuria: Code(s): R80.9 - Proteinuria, unspecified Category: Medical Qualifiers: Proteinuria type: other Qualified Code(s): R80.8 - Other proteinuria (2) Paraproteinemia: Code(s): D89.2 - Hypergammaglobulinemia, unspecified Category: Medical (3) Hypertension: Code(s): I10 - Essential (primary) hypertension Category: Medical Qualifiers: Hypertension type: primary hypertension Qualified Code(s): I10 - Essential (primary) hypertension (4) CKD (chronic kidney disease) stage 3, GFR 30-59 ml/min: Code(s): N18.30 - Chronic kidney disease, stage 3 unspecified Category: Medical Qualifiers: Chronic kidney disease stage 3 subtype: stage 3a (GFR 45-59) Qualified Code(s): N18.31 - Chronic kidney disease, stage 3a Scot Valdez has stage III CKD at baseline with the proteinuria. He had been hypertensive and had been on multiple antihypertensive medications. Renal artery stenosis has been ruled out as per the patient. He never had a renal biopsy. His urine output is good. He has high IgG levels. ( has seen Dr Moore). Doppler of his renal arteries were done has no DELANEY. I will quantify his proteinuria again with time. Differential diagnosis of his proteinuria includes secondary FSGS or longstanding hypertension vs light chain disease. He can continue Nifedipine 60 mg daily , Chlorthalidone 25 mg every other day in addition to metoprolol as well as valsartan 80 mg. He was asked to remain well hydrated and avoid nonsteroidal anti-inflammatory medications. He needs lose weight. All his questions were answered. Follow-up appointment given Orders: Orders Creatinine 4 Months D89.2 - Hypergammaglobulinemia, unspecified, I10 - Essential (primary) hypertension, N18.31 - Chronic kidney disease, stage 3a, R80.8 - Other proteinuria Blood Urea Nitrogen 4 Months D89.2 - Hypergammaglobulinemia, unspecified, I10 - Essential (primary) hypertension, N18.31 - Chronic kidney disease, stage 3a, R80.8 - Other proteinuria Electrolytes 4 Months D89.2 - Hypergammaglobulinemia, unspecified, I10 - Essential (primary) hypertension, N18.31 - Chronic kidney disease, stage 3a, R80.8 - Other proteinuria Coding Level of Care Code Est Pt Level 4 (50239) Diagnoses Other proteinuria R80.8 Proteinuria type: other Paraproteinemia D89.2 Primary hypertension I10 Hypertension type: primary hypertension Stage 3a chronic kidney disease N18.31 Chronic kidney disease stage 3 subtype: stage 3a (GFR 45-59)
[2024-10-24 09:53] VITALS: BP 134/80; PULSE 65; O2SAT 96; BMI 45.4
== END 2024-10-24 10:09 | disposition home or self-care (01) ==
PROVIDERS: PCP Internal Medicine; Visit Provider Internal Medicine Nephrology
DX: R80.8 Other proteinuria (principal); D89.2 Hypergammaglobulinemia, unspecified; I10 Essential (primary) hypertension; N18.31 Chronic kidney disease, stage 3a
CPT/HCPCS: 99214

== ENCOUNTER → 2024-10-24 09:50 | Outpatient (BNVA) | payer OTHER, MEDICARE, SELFPAY | PROVIDERS: PCP Internal Medicine; Visit Provider Internal Medicine Nephrology ==

== ENCOUNTER 2025-04-24 13:42 | Outpatient (AMB) | payer OTHER, MEDICARE, SELFPAY ==
--- OUTSIDE RECORDS SUMMARY | 2025-04-24 13:46 | XMS_ITS | Clinical Summary ---
Author Organization [facility] Address [address] [facility] [address] [place] [address] Phone Care Team Providers Care Airplane Charter Clerk Name Role Phone Max Kincaid MD Primary Care Provider [phone] Allergies Active Allergy Reactions Criticality Noted Date Comments Indomethacin Other (see comments) 04/20/2021 Medications allopurinol (ZYLOPRIM) 100 MG tablet Take 2 tablets by mouth 2 (two) times a day 01/28/2019 Active aspirin (ST FELICIA) 81 MG EC tablet Take 1 tablet by mouth 1 (one) time each day Active coenzyme Q-10 100 MG capsule Take 1 capsule by mouth 1 (one) time each day Active irbesartan (AVAPRO) 150 MG tablet Take 1 tablet by mouth 1 (one) time each day 03/23/2020 Active Multiple Vitamin (multivitamin) tablet Take 1 tablet by mouth 1 (one) time each day Active Acetaminophen Extra Strength 500 MG tablet Take 500 mg by mouth every 6 (six) hours if needed 09/02/2022 Active methylPREDNISol one (MEDROL DOSPAK) 4 MG tablet TAKE 6 TABLETS ON DAY 1 DIRECTED ON PACKAGE AND DECREASE BY 1 TAB EACH DAY FOR A TOTAL OF 6 DAYS 09/12/2022 Active tiZANidine (ZANAFLEX) 4 MG tablet TAKE 1 TABLET BY MOUTH EVERY 6 HOURS NEEDED FOR MUSCLE SPASM FOR UP TO 10 DAYS 09/02/2022 Active NIFEdipine CC (ADALAT CC) 90 MG 24 hr tablet TAKE 1 TABLET BY MOUTH EVERY DAY 90 tablet 6 05/29/2023 Active atorvastatin (LIPITOR) 20 MG tablet TAKE 1 TABLET (20 MG TOTAL) BY MOUTH ONE TIME EACH DAY 90 tablet 3 12/11/2024 Active metoprolol succinate XL (TOPROL-XL) 100 MG 24 hr tablet TAKE 2 TABLETS BY MOUTH 1 TIME EACH DAY. 180 tablet 6 01/09/2025 Active Active Problems Problem Noted Date Diagnosed Date Obstructive sleep apnea syndrome 04/26/2021 Chronic kidney disease stage 2 04/20/2021 Essential hypertension 04/20/2021 Hypertensive renal disease 04/20/2021 Proteinuria 04/20/2021 Family History Medical History Relation Comments Diabetes Mother Hypertension Mother Relation Status Comments Father Mother Social History Tobacco Use Types Packs/Day Years Used Date Smoking Tobacco: Never Smokeless Tobacco: Never Tobacco Cessation:Counseling Given: No Alcohol Use Standard Drinks/Week Comments No 0 (1 standard drink = 0.6 oz pur e alcohol) Sex and Gender Information Value Date Recorded Sex Assigned at Not on file Legal Sex Male 5:12 PM EST Gender Identity Not on file Sexual Orientation Not on file Last Filed Vital Signs Vital Sign Reading Time Taken Comments Blood Pressure 146/80 03/22/2023 1:37 PM EDT Pulse 61 03/22/2023 1:37 PM EDT Temperature - - Respiratory Rate - - Oxygen Saturation 94% 03/22/2023 1:37 PM EDT Inhaled Oxygen Concentration - - Weight 134 kg (295 lb) 03/22/2023 1:37 PM EDT Height 172.7 cm (5' 8 ) 04/13/2020 12:00 PM EDT Body Mass Index 44.85 04/13/2020 12:00 PM EDT Plan of Treatment Health Maintenance Due Date Last Done Comments Pneumococcal Vaccine: 50+ Years (1 of 2 - PCV) 1977 Colorectal Cancer Screening: Annual FOBT 2007 Colorectal Cancer Screening: Colonoscopy 2007 Colorectal Cancer Screening: Sigmoidoscopy 2007 Influenza Vaccine (#1) 2025 2, 09/06/2010 Hepatitis B Vaccine Aged Out No longe r eligible based on patient's age to complete this topic Insurance Medicare [facility] Medicare [facility] Care Teams Airplane Charter Clerk Relationship Specialty Start Date End Date Max Kincaid MD [address] [place] [address] [id number] PCP - General Internal Medicine 09/19/22
--- OUTSIDE RECORDS SUMMARY | 2025-04-24 13:46 | XMS_ITS | Clinical Summary ---
Author Organization [facility] Address [address] [place] [id number] Care Team Providers Care Animal Cop Name Role Phone Max Kincaid MD Primary Care Provider Unavailab le Allergies Active Allergy Reactions Criticality Noted Date Comments Indomethacin 09/01/2023 Medications Medication Sig Dispensed Refills Start Date End Date Status allopurinol (ZYLOPRIM) 100 MG tablet Take 2 tablets (200 mg total) by mouth daily. 0 01/28/2019 Active atorvastatin (LIPITOR) tablet 20 mg Take 1 tablet (20 mg total) by mouth daily. 0 07/09/2023 Active metoprolol succinate (TOPROL-XL) 24 hr tablet 100 mg Take 2 tablets (200 mg total) by mouth daily. 0 05/29/2023 Active NIFEdipine ER (ADALAT CC) 90 MG 24 hr tablet Take 1 tablet (90 mg total) by mouth daily. TAKING 1 1/2 TABLETS DAILY 0 05/29/2023 Active valsartan (DIOVAN) tablet 40 mg Take 1 tablet (40 mg total) by mouth daily. 0 Active fenofibrate (TRICOR) tablet 145 mg Take 1 tablet (145 mg total) by mouth daily. 0 Active chlorthalidone (HYGROTON) 25 MG tablet Take 1 tablet (25 mg total) by mouth 3 (three) times a week. 0 Active Active Problems Problem Noted Date Diagnosed Date MGUS (monoclonal gammopathy of unknown significa nce) 09/01/2023 Anemia in other chronic diseases classified else where 09/01/2023 Acute renal failure superimp osed on stage 3b chronic kidney disease 09/01/2023 Left leg cellulitis 09/01/2023 Social History Tobacco Use Types Packs/Day Years Used Date Smoking Tobacco: Never Smokeless Tobacco: Never Tobacco Cessation:Counseling Given: Not Answered Alcohol Use Standard Drinks/Week Comments Not Currently 0 (1 standard drink = 0.6 oz pur e alcohol) Sex and Gender Information Value Date Recorded Sex Assigned at Not on file Gender Identity Not on file Sexual Orientation Not on file Job Start Date Occupation Industry Not on file Not on file Not on file Last Filed Vital Signs Vital Sign Reading Time Taken Comments Blood Pressure 136/78 03/01/2024 9:41 AM EDT Pulse 61 03/01/2024 9:41 AM EDT Temperature 36.4 C (97.6 F) 03/01/2024 9:41 AM EDT Respiratory Rate - - Oxygen Saturation 97% 03/01/2024 9:41 AM EDT Inhaled Oxygen Concentration - - Weight 131 kg (288 lb 12.8 oz) 03/01/2024 9:41 A M EDT Height 170.2 cm (5' 7 ) 03/01/2024 9:41 AM EDT Body Mass Index 45.23 03/01/2024 9:41 AM EDT Plan of Treatment Health Maintenance Due Date Last Done Comments Hepatitis C Screening 1960 Pneumococcal Vaccine (1 of 2 - PCV) 01/20/1964 Depression Screening 1970 BMI Counseling 01/20/1976 Preventative Health Evaluation 01/20/1976 Shingrix-Zoster Vaccine (1 o f 2) 1977 Colon Cancer Screening (Colonoscopy) 2003 COVID-19 Vaccine (3 - Pfizer risk series) 02/10/2021 01/13/2021, 12/23/2020 Fall Risk Assessment 2023 Influenza Vaccine (#1) 2025 7, 09/12/2016 DTap / Tdap / Td (2 - Td or Tdap) 11/21/2029 11/21/2019 RSV Adult > 60+ Yrs or (1 - 1-dose 75+ series) 2033 Hepatitis B Vaccines Aged Out No long er eligible based on patient's age to complete this topic RSV Ped < 20 months Aged Out No longe r eligible based on patient's age to complete this topic Care Teams Animal Cop Relationship Specialty Start Date End Date Max Kincaid MD PCP - General Internal Medicine 08/31/23
--- OUTSIDE RECORDS SUMMARY | 2025-04-24 13:46 | XMS_ITS | Clinical Summary ---
Author Organization [facility] Address [address] [place] [address] Phone Care Team Providers Care Sheet Metal Welder Name Role Phone aMx Kincaid MD Primary Care Provider [phone] Allergies Active Allergy Reactions Criticality Noted Date Comments Indomethacin 09/01/2023 Medications atorvastatin (LIPITOR) 20 mg tablet Take 1 tablet (20 mg total) by mouth daily. 07/09/2023 Active metoprolol succinate (TOPROL-XL) 100 mg 24 hr tablet Take 100 mg by mouth 2 times daily. 05/29/2023 Active NIFEdipine CC (ADALAT CC) 60 mg 24 hr tablet Take 1 tablet (60 mg total) by mouth 1 (one) time each day. Active valsartan (DIOVAN) 80 mg tablet Take 1 tablet (80 mg total) by mouth 1 (one) time each day. Active chlorthalidone (HYGROTON) 25 mg tablet Take 1 tablet (25 mg total) by mouth every other day. Active acetaminophen (TYLENOL) 500 mg tablet Take 1 tablet (500 mg total) by mouth every 6 (six) hours if needed. 09/02/2022 Active aspirin 81 mg EC tablet Take 1 tablet (81 mg total) by mouth 1 (one) time each day. 01/29/2021 Active coenzyme Q10 400 mg capsule Take 400 mg by mouth daily. 03/23/2020 Active omega 3-kam-gzh-fish oil 850-1,400 mg capsule Take 1 tablet by mouth 1 (one) time each day. Active multivitamin (Multiple Vitamins) tablet Take 1 tablet by mouth 1 (one) time each day. 02/11/2011 Active allopurinoL (ZYLOPRIM) 100 mg tablet TAKE 2 TABLETS BY MOUTH EVERY DAY 180 tablet 1 09/30/2024 Active fenofibrate (TRICOR) 145 mg tablet TAKE 1 TABLET BY MOUTH EVERY DAY 90 tablet 1 11/04/2024 Active azithromycin (ZITHROMAX) 250 mg tablet Take 2 tablets (500 mg total) by mouth 1 (one) time each day for 1 day, THEN 1 tablet (250 mg total) 1 (one) time each day for 4 days. 6 each 04/21/2025 Active Active Problems Problem Noted Date Diagnosed Date Venous insufficiency of both lower extremities 0 01/10/2025 Assessment & Plan (01/10/2025 11:32 AM EDT): Patient underwent an echocardiogram and venous ultrasound due to swelling in his legs. Echocardiogram showed normal LV function and no significant valvular disease. Vascular duplex 09/06/2024 showed no reflux in the deep veins and mild reflux in the right GSV at the knee and below-knee locations. On the left, significant reflux in the left popliteal vein and left GSV at the mid thigh, knee and below knee location. Patient was recommended and referred to vascular surgery which he has not heard back about at this time. Will re refer today. We discussed conservative measures in the meantime including low salt diet, elevated, and compression socks. Patient reports the swelling does improve in the mornings. No significant swelling noted on exam today. Orders: Ambulatory referral to Vascular Surgery; Future Ascending aorta dilatation (CMS/HCC V24) 025 Assessment & Plan (01/10/2025 11:32 AM EDT): Recent echocardiogram showed ascending aorta at 4.2 cm. We will continue to monitor with annual imaging. HTN (hypertension) 07/24/2024 Overview (07/24/2024): Dr Esquivel Assessment & Plan (01/10/2025 11:32 AM EDT): Blood pressure acceptable today. Encouraged him to keep a blood pressure log to monitor his blood pressures at home and notify me of any consistently elevated readings. In the meantime, he will continue his current antihypertensive medication regimen. Assessment & Plan (09/03/2024 10:09 AM EST): The patient has a history of arterial hypertension. The patient's blood pressure today was noted to be well controlled. We'll continue the current antihypertensive medication regimen. Orders: ECG 12 lead CBC and differential; Future Acute renal failure superimp osed on stage 3b chronic kidney disease (CMS/HCC V24, CMS/HCC V28) 09/01/2023 Anemia in other chronic diseases classified else where 09/01/2023 Left leg cellulitis 09/01/2023 MGUS (monoclonal gammopathy of unknown significa nce) 09/01/2023 Chronic hip pain 11/21/2019 Overview (07/24/2024): Sts related to infection years ago. NEOS Thyroid nodule 04/06/2018 Overview (07/24/2024): 12/29 biopsy negative right and left nodules Gout 01/29/2018 Hyperlipidemia 07/13/2017 Assessment & Plan (01/10/2025 11:32 AM EDT): Patient has a history of HLD and hypertriglyceridemia. He continues on statin therapy and fenofibrate as prescribed. Last fasting lipid panel showed total cholesterol of 198 and LDL at goal at 60. He was not fasting with elevated triglycerides. At this point, he will continue his current regimen and continue to work on healthy diet and lifestyle to reduce his levels. Assessment & Plan (09/03/2024 10:09 AM EST): The patient has a history of hyperlipidemia. The patient is currently on atorvastatin 20 mg orally daily and fenofibrate 145 mg orally daily. We will order a new lipid panel to evaluate the patient's current lipid control and determine if any adjustment are needed in the lipid lowering therapy. Orders: Lipid panel with reflex to direct LDL; Future Adenomatous colon polyp 07/04/2016 Internal hemorrhoids 05/11/2016 Hematuria 12/14/2015 Overview (07/24/2024): Unclear; patient does not recall this; urinalysis 12/05 negative Obstructive sleep apnea 08/24/2015 Overview (07/24/2024): Comments: confirmed [id number]. declined repeat study January 2010 Obesity 08/14/2012 Proteinuria 09/06/2010 Resolved Problems Problem Noted Date Diagnosed Date Resolved Date Dyspnea on exertion 09/03/2024 01/11/20 25 Assessment & Plan (09/03/2024 10:09 AM EST): The patient has been noticing occasional symptoms of exertional dyspnea that occurs particularly when he goes up more than 2-3 flights of stairs. He denies any symptoms of dyspnea with the rest of his activities. He denies any chest pain. The patient does have multiple risk factors for the presence of coronary artery disease. As such, we will proceed with further cardiac testing with an exercise stress test to rule out the presence of ischemic heart disease as a cause of his exertional dyspnea. Will also order an echocardiogram to rule out any underlying structural heart disease as a cause of his dyspnea. Orders: Exercise stress test; Future Transthoracic echocardiogram (TTE) complete with PRN contrast, bubble, strain, and 3D order panel; Future Localized edema 12/29/2023 01/10/2025 Assessment & Plan (09/03/2024 10:09 AM EST): The patient has been having symptoms of mild bilateral ankle swelling that occurs more prominently towards the end of his day. Will order an echocardiogram to rule out any underlying structural heart disease that may be associated with his symptoms of occasional bilateral ankle edema. On the other hand, we will order a reflux study to rule out lower extremity venous insufficiency as a cause of his bilateral ankle edema given that his symptoms occur more prominently towards the end of his day. Finally, his bilateral ankle edema may be secondary to his use of a calcium channel trino (nifedipine). However, before considering any dose adjustments to the nifedipine, we will first rule out the presence of underlying cardiac disease with an echocardiogram and rule out the presence of lower extremity venous insufficiency with a venous insufficiency study. Orders: Comprehensive metabolic panel; Future Vascular US duplex lower extremity venous insufficiency bilateral; Future B-type natriuretic peptide; Future Transthoracic echocardiogram (TTE) complete with PRN contrast, bubble, strain, and 3D order panel; Future Encounters Date Type Department Care Team Description 04/21/2025 2:45 PM EDT Office Visit Internal Medicine [address] [phone] Max Kincaid MD Acute cough (Primary Dx); Impacted cerumen of right ear 04/21/2025 Telephone Internal Medicine [address] [phone] Max Kincaid MD Cough 03/27/2025 Telephone Internal Medicine [address] [phone] Max Kincaid MD Joseph: Jury duty letter from Last 3 Months Immunizations Name Administration Dates Next Due Influenza trivalent, 0.5mL, preservative free (Fluarix; FluLaval; Fluzone) ages 6mo and older (Afluria) 3 years and older 08/17/2012,09/06/2010 Influenza trivalent, with pr eservative (Fluzone; Afluria) 6mo and older 07/13/2017,09/12/2016 Td Tetanus diptheria (Tdvax) 7yo and older 10/16,07/23/2004 Tdap Tetanus diptheria acell ular pertussis (Boostrix; Adacel) 7yo and older 11/21/2019 Surgical History Surgery Date Site/Laterality Comments TOTAL HIP ARTHROPLASTY Right PROCEDURE:TOTAL HIP ARTHROPLASTY;COMMENT:2020 Medical History Medical History Date Comments [place]roke [place] [place] [facility] [place] [facility] SHARATH (obstructive sleep apnea) DX :SHARATH (obstructive sleep apnea) Hypertension DX:Hypertension CVA (cerebral vascular accid ent) ([facility] [place], [facility] [place]28) DX:CVA (cerebral vascular ac cident) ([facility]) Chronic kidney disease DX:Chroni c kidney disease Social History Tobacco Use Types Packs/Day Years Used Date Smoking Tobacco: Never Smokeless Tobacco: Never Alcohol Use Standard Drinks/Week Comments Not Currently 0 (1 standard drink = 0.6 oz pur e alcohol) Sex and Gender Information Value Date Recorded Sex Assigned at Not on file Legal Sex Male 5:15 AM EST Gender Identity Not on file Sexual Orientation Not on file Obstetrics History Last Filed Vital Signs Vital Sign Reading Time Taken Comments Blood Pressure 160/84 04/21/2025 2:34 PM EDT Pulse 73 04/21/2025 2:34 PM EDT Temperature 36.1 C (96.9 F) 04/21/2025 2:34 PM EDT Respiratory Rate - - Oxygen Saturation 95% 04/21/2025 2:34 PM EDT Inhaled Oxygen Concentration - - Weight 59.2 kg (130 lb 9.6 oz) 04/21/2025 2:34 P M EDT Height 172.7 cm (5' 8 ) 01/10/2025 10:36 AM EDT Body Mass Index 19.86 01/10/2025 10:36 AM EDT Plan of Treatment Health Maintenance Due Date Last Done Comments Zoster Vaccines (1 of 2) 1977 Pneumococcal Vaccine: 50+ Years (1 of 1 - PCV) 01/20/2008 Social Influencers of Health Screening 09/18/2022 COVID-19 Vaccine ( season) 2024 10/13/2021, 01/13/2021, 12/23/2020 Colorectal Cancer Screening: Colonoscopy 01/27/2025 01/27/2022 Influenza Vaccine (#1) 2025 , 09/06/2022, 08/30/2021, Additional history exists Depression Screening 06/21/2025 06/21/2024 Falls Risk Assessment 06/21/2025 06/21/2024 Medicare Annual Wellness Visit 06/21/2025 06/21/2024 Hypertension/CHF/CAD Annual BMP Blood Test 04/04/2026 04/04/2025, 10/18/2024, 08/17/2023 Cholesterol Screening (Lipid Panel) 10/18/2029 10/18/2024, 04/25/2023 DTaP,Tdap,and Td Vaccines (4 - Td or Tdap) 11/21/2029 11/21/2019, 10/16/2013, 07/23/2004 RSV Immunization Adult Patients (1 - 1-dose 75+ series) 2033 Hepatitis C Screening Completed 11/21/2019 HIB Vaccines Aged Out No longer eligi ble based on patient's age to complete this topic HPV Vaccines Aged Out No longer eligi ble based on patient's age to complete this topic Hepatitis A Vaccines Aged Out No long er eligible based on patient's age to complete this topic Hepatitis B Vaccines Aged Out No long er eligible based on patient's age to complete this topic IPV Vaccines Aged Out No longer eligi ble based on patient's age to complete this topic MMR Vaccines Aged Out No longer eligi ble based on patient's age to complete this topic Meningococcal ACWY Vaccine Aged Out N o longer eligible based on patient's age to complete this topic Meningococcal B Vaccine Aged Out No l onger eligible based on patient's age to complete this topic RSV Immunization Patients Under 20 months Aged Out No longer eligible based on patient's age to complete this topic Varicella Vaccines Aged Out No longer eligible based on patient's age to complete this topic Procedures Procedure Name Priority Date/Time Associated Diagnosis Comments CREATININE, SERUM Routine 04/04/2025 2:5 3 PM EDT Nephrogenous proteinuria Cryofibrinogenemia Essential hypertension, malignant Chronic kidney disease (CKD) stage G3a/A1, moderately decreased glomerular filtration rate (GFR) between 45-59 mL/min/1.73 square meter and albuminuria creatinine ratio les* (CMS/HCC V24, CMS/HCC V28) BUN Routine 04/04/2025 2:53 PM EDT Nephrogenous proteinuria Cryofibrinogenemia Essential hypertension, malignant Chronic kidney disease (CKD) stage G3a/A1, moderately decreased glomerular filtration rate (GFR) between 45-59 mL/min/1.73 square meter and albuminuria creatinine ratio les* (CMS/HCC V24, CMS/HCC V28) ELECTROLYTE PANEL Routine 04/04/2025 2:5 3 PM EDT Nephrogenous proteinuria Cryofibrinogenemia Essential hypertension, malignant Chronic kidney disease (CKD) stage G3a/A1, moderately decreased glomerular filtration rate (GFR) between 45-59 mL/min/1.73 square meter and albuminuria creatinine ratio les* (CMS/HCC V24, CMS/HCC V28) LIPID PANEL WITH REFLEX TO DIRECT LDL Routine 10/18/2024 1:12 PM EST Pure hypercholesterolemia HM DEPRESSION SCREENING Routine 06/21/2024 FALLS RISK ASSESSMENT Routine 06/21/2024 COLONOSCOPY Routine 01/27/2022 HEPATITIS C SCREENING Routine 11/21/2019 from Last 3 Months or Most Recently Relevant to Health Maintenance Results * (ABNORMAL) Creatinine (04/04/2025 2:53 PM EDT) Creatinine 1.91(H) 0.70 - 1.30 mg/dL LAB CHEMISTRY METHOD 04/04/2025 6:45 PM EDT [facility] eGFR 38(L) >=60 mL/min/1. 73m2 LAB CHEMISTRY METHOD 04/04/2025 6:45 PM EDT [facility] Comment:Calculation based on the Chronic Kidney Disease Epidemiology Collaboration (CKD-EPI) equation refit without adjustment for race. Blood Venous blood specimen / Unknown Venipuncture / Unknown 04/04/2025 2:53 PM EDT 04/04/2025 2:53 PM EDT us Vignesh Henao MD LAB BLOOD ORDERABLES Final Resul t [facility] [address] [place] [address], * (ABNORMAL) BUN (04/04/2025 2:53 PM EDT) BUN 30(H) 5 - 25 mg/dL LAB CHEMISTRY METHOD 04/04/2025 6:45 PM EDT [facility] Blood Venous blood specimen / Unknown Venipuncture / Unknown 04/04/2025 2:53 PM EDT 04/04/2025 2:53 PM EDT us Vignesh Heano MD LAB BLOOD ORDERABLES Final Resul t Performing Organization Address [facility]/ZIP Co de Phone Number [facility] [address] [place] [address], [place] [phone] * Electrolyte panel (04/04/2025 2:53 PM EDT) Sodium 140 133 - 145 mmol/L LAB CHEMISTRY METHOD 04/04/2025 6:45 PM EDT [facility] Potassium 3.5 3.5 - 5.5 mmol/L LAB CHEMISTRY METHOD 04/04/2025 6:45 PM EDT [facility] Chloride 105 96 - 110 mmol/L LAB CHEMISTRY METHOD 04/04/2025 6:45 PM EDT [facility] CO2 27 21 - 32 mmol/L LAB CHEMISTRY METHOD 04/04/2025 6:45 PM EDT [facility] Anion Gap 8 3 - 11 LAB CHEMISTRY METHOD 04/04/2025 6:45 PM EDT [facility] Blood Venous blood specimen / Unknown Venipuncture / Unknown 04/04/2025 2:53 PM EDT 04/04/2025 2:53 PM EDT us Vignesh Henao MD LAB BLOOD ORDERABLES Final Resul t Performing Organization Address [facility]/ZIP Co de Phone Number [facility] [address] [place] [address], [place] [phone] * (ABNORMAL) Lipid panel with reflex to direct LDL (10/18/2024 1:12 PM EST) Cholesterol 198 0 - 200 mg/dL LAB CHEMISTRY METHOD 10/18/2024 4:36 PM EST [facility] Triglycerides 493(H) 0 - 150 mg/dL LAB CHEMISTRY METHOD 10/18/2024 4:36 PM [facility] HDL 39(L) >=40 mg/dL LAB CHEMISTRY METHOD 10/18/2024 4:36 PM [facility] LDL Calculated 60 0 - 100 mg/dL LAB CHEMISTRY METHOD 10/18/2024 4:36 PM [facility] Comment:Unable to calculate when triglycerides >400 mg/dL. VLDL Cholesterol Diaz 98.6 mg/dL LAB CHEMISTRY METHOD 10/18/2024 4:36 PM [facility] Comment:Unable to calculate when triglycerides >400 mg/dL. Non HDL Chol. (LDL+VLDL) 159(H) <145 mg/dL LAB CHEMISTRY METHOD 10/18/2024 4:36 PM [facility] Comment:Unable to calculate when triglycerides >400 mg/dL. Chol/HDL Ratio 5.1(H) 0.0 - 4.4 LAB CHEMISTRY METHOD 10/18/2024 4:36 PM [facility] Blood Venous blood specimen / Unknown Venipuncture / Unknown 10/18/2024 1:12 PM EST 10/18/2024 1:12 PM EST Steve Casillas MD LAB BLOOD ORDERABLES F inal Result [facility] [address] [place] [address], * Falls Risk Assessment (06/21/2024) Falls Risk Assessment abstracted Historical Provider HEALTH MAINTENANCE Final Result * Depression Screening (06/21/2024) Depression Screening abstracted Historical Provider HEALTH MAINTENANCE Final Result * Colonoscopy (01/27/2022) Colonoscopy abstracted, no interpretation Anatomical Region Laterality Modality Other us Historical Provider HEALTH MAINTENANCE Final Result * Hepatitis C Screening (11/21/2019) Hepatitis C Screening abstracted Historical Provider HEALTH MAINTENANCE Final Result from Last 3 Months or Most Recently Relevant to Health Maintenance Insurance [facility] [address] [place] [address] MEDICARE Care Teams Sheet Metal Welder Relationship Specialty Start Date End Date Max Kincaid MD [address] [facility] [address] [place] [address] PCP - General Internal Medicine 10/25/24
[2025-04-24 13:56] VITALS: BP 140/90; PULSE 68; O2SAT 94; BMI 45.2
--- NOTE | 2025-04-24 13:56 | HO.NEPHOV ---
Vital Signs 04/24/25 13:56 Height 5 ft 8 in Weight 297 lb BMI 45.2 BP 140/90 H Blood Pressure Location Lt brachial Position Sitting Pulse 68 Pulse Source Pulse Oximeter Pulse Oximetry (%) 94 Oxygen Delivery Method Room Air Intake Visit Reasons: 4mon follow-up w/labs-[employer]ers Required: No Accompanied by: Spouse Allergies indomethacin Allergy (Severe, Verified 04/24/25 13:58) Anaphylaxis HPI Comments Details: Mr. Ceballos was seen in follow up for his CKD , hypertension and proteinuria . He had a nuclear stress test . He has high IgG levels and has seen Dr Moore. He has been on ARB and Nifedipine for BP. His last serum creatinine has been stable. He denies any other symptoms [facility] Medical History (Updated 09/06/23 @ 06:25 by Vignesh Henao MD) Memory loss High cholesterol Hypertension Arthritis Occipital stroke Surgical History History of right hip replacement H/O foot surgery Family History Mother Diabetes HTN (hypertension) Heart disease Father Alzheimer disease Family/Other HTN (hypertension) Social History Alcohol intake: never Patient Tobacco Use Status: Never used Tobacco Review of Systems Const All systems reviewed & are unremarkable except as noted in HPI and below Physical Exam Vital Signs: Last Vital Signs Pulse 68 04/24/25 13:56 BP 166/96 H 04/24/25 13:56 Pulse Ox 94 04/24/25 13:56 Oxygen Delivery Method Room Air 04/24/25 13:56 BMI result Body Mass Index 45.2 Const General: comfortable and no acute distress Orientation/consciousness: patient oriented x3 HEENT Head: Yes normocephalic Mouth: Normal oral and palatal mucosa present Eyes EOM: EOMs intact bilaterally Neck Neck: Yes supple Resp Auscultation: clear to auscultation bilaterally Cardio Jugular venous distension: no JVD Rate: regular rate GI Palpation (GI): Soft to palpation Auscultation: normal bowel sounds General: Yes no CVA tenderness Back/Spine/Pelvis Back: no CVA tenderness Skin General skin exam: no rashes or lesions noted Neuro General: patient oriented x3 and moves all extremities Extrem General: Yes no pedal edema Assessment & Plan Assessment & Plan (1) Hypertension: Code(s): I10 - Essential (primary) hypertension Category: Medical Qualifiers: Hypertension type: primary hypertension Qualified Code(s): I10 - Essential (primary) hypertension (2) CKD (chronic kidney disease) stage 3, GFR 30-59 ml/min: Code(s): N18.30 - Chronic kidney disease, stage 3 unspecified Category: Medical Qualifiers: Chronic kidney disease stage 3 subtype: stage 3a (GFR 45-59) Qualified Code(s): N18.31 - Chronic kidney disease, stage 3a (3) Proteinuria: Code(s): R80.9 - Proteinuria, unspecified Category: Medical Qualifiers: Proteinuria type: other Qualified Code(s): R80.8 - Other proteinuria Plan José Miguel has stage III CKD at baseline with the proteinuria. He had been hypertensive and had been on multiple antihypertensive medications. Renal artery stenosis has been ruled out as per the patient. He never had a renal biopsy. His urine output is good. He has high IgG levels. ( has seen Dr Moore). Doppler of his renal arteries were done has no DELANEY. I will quantify his proteinuria again with time. Differential diagnosis of his proteinuria includes secondary FSGS or longstanding hypertension vs light chain disease. He can continue Nifedipine 60 mg daily , Chlorthalidone 25 mg every other day in addition to metoprolol as well as valsartan 80 mg. He was asked to remain well hydrated and avoid nonsteroidal anti-inflammatory medications. He needs lose weight. All his questions were answered. Follow-up appointment given Orders: Orders Electrolytes 6 Months I10 - Essential (primary) hypertension, N18.31 - Chronic kidney disease, stage 3a, R80.8 - Other proteinuria Protein Creatinine Ratio, Ur 6 Months I10 - Essential (primary) hypertension, N18.31 - Chronic kidney disease, stage 3a, R80.8 - Other proteinuria Creatinine 6 Months I10 - Essential (primary) hypertension, N18.31 - Chronic kidney disease, stage 3a, R80.8 - Other proteinuria Blood Urea Nitrogen 6 Months I10 - Essential (primary) hypertension, N18.31 - Chronic kidney disease, stage 3a, R80.8 - Other proteinuria Coding Level of Care Code Est Pt Level 4 (08627) Diagnoses Primary hypertension I10 Hypertension type: primary hypertension Stage 3a chronic kidney disease N18.31 Chronic kidney disease stage 3 subtype: stage 3a (GFR 45-59) Other proteinuria R80.8 Proteinuria type: other
== END 2025-04-24 14:21 | disposition home or self-care (01) ==
LOC: HO.HKAS 13:43
PROVIDERS: PCP Internal Medicine; Visit Provider Internal Medicine Nephrology
DX: I10 Essential (primary) hypertension (principal); N18.31 Chronic kidney disease, stage 3a; R80.8 Other proteinuria
CPT/HCPCS: 99214